=== PATIENT | female | born 1935 | race Caucasian/White ===

== ENCOUNTER 2018-03-15 11:49 | Emergency (ER) | payer OTHER ==
[~2018-03-15] VITALS: Ht 160 cm; Wt 59.1 kg
[2018-03-15 13:34] LABS: BASOPHIL (%) 0.2 % (0-1); EOSINOPHIL (%) 0.3 % (0-5); HEMATOCRIT 35.8 % (36.0-46.0); HEMOGLOBIN 11.8 G/DL (11.9-15.5); IMMATURE GRANULOCYTE (%) 1.4 % (0.0-0.7); LYMPHOCYTE (%) 8.7 % (15-42); LYMPHOCYTE COUNT 0.9 K/uL (1.0-2.8); MCV 91.1 FL (83-99); MONOCYTE (%) 5.7 % (3-12); MONOCYTE COUNT 0.6 K/uL (0-0.8); NEUTROPHIL (%) 83.7 % (45-76); NEUTROPHIL COUNT 8.4 K/uL (1.8-6.4); PLATELET COUNT 212 K/uL (156-360); RBC DIS.WIDTH-CV 13.1 % (11.8-14.6); RBC DIS.WIDTH-SD 42.7 % (39-53); RED BLOOD COUNT 3.93 M/uL (3.80-5.20)
[2018-03-15 13:45] LABS: CHLORIDE 101 mEq/L (99-109); POTASSIUM 4.7 mEq/L (3.7-5.4); SODIUM 137 mEq/L (136-147)
[2018-03-15 13:47] LABS: GLUCOSE 128 mg/dL (70-99)
[2018-03-15 13:50] LABS: CREATININE 0.9 mg/dL (0.6-1.3); GFR ESTIMATE (CALCULATED) > 59 mL/min/
[2018-03-15 13:51] LABS: UREA NITROGEN (BUN) 19 mg/dL (9-23)
[2018-03-15] MEDS ORDERED: TYLENOL WITH C1 EACH PO (15:29)
[2018-03-15] MEDS ORDERED: FLEXERIL10 MG PO (16:09)
[2018-03-15] MEDS ORDERED: ULTRAM50 MG PO (16:09)
[2018-03-15 16:24] VITALS: BP 145/63
== END 2018-03-15 16:17 | disposition home or self-care (01) ==
LOC: EME 11:49
PROVIDERS: Emergency Medicine
DX: S70.01XA Contusion of right hip, initial encounter (principal); E11.9 Type 2 diabetes mellitus without complications; E78.5 Hyperlipidemia, unspecified; M19.90 Unspecified osteoarthritis, unspecified site; Z79.82 Long term (current) use of aspirin; Z79.84 Long term (current) use of oral hypoglycemic drugs; Z87.891 Personal history of nicotine dependence; Z95.1 Presence of aortocoronary bypass graft; Z95.2 Presence of prosthetic heart valve; Z88.0 Allergy status to penicillin; Z88.2 Allergy status to sulfonamides
CPT/HCPCS: 73090; 73502; 80048; 85025; 85610; 99281; 99284